=== PATIENT | male | born 1975 | race American Indian/Alaskan Native ===

== ENCOUNTER 2016-07-12 12:28 | Emergency (ER) | payer SELFPAY ==
[2016-07-12 13:16] VITALS: BP 134/83
[2016-07-12] MEDS ORDERED: BOOSTRIX IM ONE (13:55)
--- NOTE | 2016-07-12 14:36 | Emergency Department Report ---
Entered by CADEN FALL, acting as scribe for PRIYANKA OTTO PA. - General Chief Complaint: Wound/Laceration Stated Complaint: RT HAND POINTER FINGER/GLASS Time Seen by Provider: 07/12/16 13:43 Source: patient Mode of arrival: Ambulatory Limitations: No Limitations - History of Present Illness Initial Comments: 40 year old male with no significant PMHx presents to the ED c/o a laceration to the right lateral 2nd digit on hand that began this morning at 07:00. Patient states he cut his finger on shattered glass from a broken picture. Associated symptoms include pain around affected area, but he denies numbness, tingling, nausea, vomiting, fever, and loss of feeling. Rates associated pain a 5/10 in severity. Not UTD on tetanus shot. NKDA. -: This morning (07:00) Location: other (lateral 2nd digit on right hand) Extremity Location: Right: Hand (lateral 2nd digit) Place: home Patient Tetanus UTD: No Context: accidental (cut finger on shattered glass from a broken picture) Associated Symptoms: pain, suspect foreign body present. denies: loss of feeling/numbness, weakness followed by dizziness, nausea/vomiting, fever - Related Data Home Medications Medication Instructions Recorded Confirmed Last Taken No Known Home Medications [No 07/12/16 07/12/16 Unknown Reported Home Medications] Allergies Allergy/AdvReac Type Severity Reaction Status Date / Time No Known Allergies Allergy Unverified 07/12/16 13:15 ED Review of Systems Comment: All other systems reviewed and negative Constitutional: denies: chills, fever, weakness, other (tingling) Respiratory: denies: orthopnea, shortness of breath, SOB with exertion, SOB at rest, stridor Cardiovascular: denies: dyspnea on exertion, orthopnea Gastrointestinal: denies: nausea, vomiting Musculoskeletal: other (2nd digit on right hand pain) Skin: other (lacteration to lateral right 2nd digit on hand). denies: rash Neurological: denies: numbness ED Past Medical Hx - Past Medical History Previous Medical History?: No - Surgical History Past Surgical History?: No - Social History Smoking Status: Current Every Day Smoker Substance Use Type: Alcohol - Medications Home Medications: Home Medications Medication Instructions Recorded Confirmed Last Taken Type No Known Home Medications [No 07/12/16 07/12/16 Unknown History Reported Home Medications] ED Physical Exam - General Limitations: No Limitations General appearance: alert, in no apparent distress - Head Head exam: Present: atraumatic, normocephalic - Eye Eye exam: Present: normal appearance, EOMI Pupils: Present: normal accommodation - ENT ENT exam: Present: normal exam, mucous membranes moist - Neck Neck exam: Present: normal inspection, full ROM - Respiratory Respiratory exam: Present: normal lung sounds bilaterally. Absent: respiratory distress, wheezes, rales, rhonchi - Cardiovascular Cardiovascular Exam: Present: regular rate, normal rhythm. Absent: systolic murmur, diastolic murmur, rubs, gallop - GI/Abdominal GI/Abdominal exam: Present: soft. Absent: distended - Extremities Exam Extremities exam: Present: normal inspection, full ROM, tenderness (right lateral 2nd digit on hand ), normal capillary refill - Expanded Upper Extremity Exam Right General: Present: laceration (right lateral 2nd digit on hand). Absent: abrasion, foreign body, amputation, avulsion Shoulder Exam: Present: normal inspection, full ROM Upper Arm exam: Present: normal inspection, full ROM Elbow exam: Present: normal inspection, full ROM Forearm Wrist exam: Present: normal inspection, full ROM Hand Wrist exam: Present: normal inspection, full ROM, tenderness (2nd digit on right hand), laceration (lateral 2nd digit on right hand). Absent: swelling, abrasion, ecchymosis, deformity, dislocation, erythema, amputation Neuro motor exam: Present: wrist extension intact, thumb opposition intact, thumb IP flexion intact, thumb adduction intact, fingers 2-5 abduction intact Neurosensory exam: Present: radial nerve intact, ulnar nerve intact, median nerve intact Vascular: Present: normal capillary refill, radial pulse (2+), brachial pulse (2 +), ulnar pulse (2+). Absent: vascular compromise, pulse deficit radial art, pulse deficit ulnar art, pulse deficit brachial art - Back Exam Back exam: Present: normal inspection, full ROM - Neurological Exam Neurological exam: Present: alert, oriented X3 - Psychiatric Psychiatric exam: Present: normal affect, normal mood - Skin Skin exam: Present: warm, dry, intact. Absent: rash ED Course Vital Signs 07/12/16 13:13 Temperature 98.0 F Pulse Rate 83 Respiratory 19 Rate Blood Pressure 134/83 O2 Sat by Pulse 100 Oximetry - Laceration /Wound Repair Left Finger Wound Length (cm): 1 Wound's Depth, Shape: superficial, linear Wound Explored: no foreign body removed Irrigated w/ Saline (ccs): 45 Betadine Prep?: Yes Wound Debrided: minimal Wound Repaired With: Dermabond ED Medical Decision Making - Medical Decision Making Patient was evaluated in fast track area of ED by this provider. Patient presented with a laceration to lateral right 2nd digit on hand that began this morning at 07:00. In the ED, the patient's small laceration will be glued together. Patient is in no acute distress at this time. He is instructed to keep the affected area clean and dry. He is encouraged to return to the emergency room for any worsening symptoms. ED Disposition Clinical Impression: Cut of finger Disposition: DISCHARGED TO HOME OR SELFCARE Is pt being admited?: No Does the pt Need Aspirin: No Condition: Stable Instructions: Skin Adhesive Care (ED) Additional Instructions: Keep Wound clean and dry. You can apply a Band-Aid on it please change the bandage daily. Referrals: PRIMARY CARE,MD [Primary Care Provider] - 3-5 Days [facility] [Provider Group] - 3-5 Days [facility] [Provider Group] - 3-5 Days Forms: Work/School Release Form(ED) This documentation as recorded by the EUFEMIA bob JASMINE,accurately reflects the service I personally performed and the decisions made by me, PRIYANKA OTTO PA.
== END 2016-07-12 14:36 | disposition home or self-care (01) ==
LOC: ED 12:28
DX: S61.210A Laceration without foreign body of right index finger without damage to nail, initial encounter (principal); F17.200 Nicotine dependence, unspecified, uncomplicated; W25.XXXA Contact with sharp glass, initial encounter; Y93.9 Activity, unspecified; Y99.9 Unspecified external cause status; Y92.009 Unspecified place in unspecified non-institutional (private) residence as the place of occurrence of the external cause
CPT/HCPCS: 90471; 90715

== ENCOUNTER 2017-12-11 21:53 | Emergency (ER) | payer OTHER ==
[2017-12-11 22:42] VITALS: BP 121/92
[2017-12-11] MEDS ORDERED: MOTRIN PO ONE (23:03)
--- NOTE | 2017-12-11 23:07 | Emergency Department Report ---
HPI - General Chief Complaint: Dental/Oral Time Seen by Provider: 12/11/17 23:03 - HPI HPI: Room 37 The patient is a 42-year-old male presented with a chief complaint of toothache. The patient's A for 1 week he's had pain from his left upper molars. Patient denies any history of fever. Patient states the pain radiates to the left side of his neck and eyes. The patient gives his pain score of 8/ 10. The patient states he has not yet seen a dentist. Location: [See above] Duration: 7 days Quality: Pain Severity:8/10 Modifying factors: [see above] Context: [see above] Mode of transportation: The patient drove himself to the emergency department and there are no visitors present ED Past Medical Hx - Past Medical History Previous Medical History?: No - Surgical History Past Surgical History?: No - Family History Family history: no significant - Social History Smoking Status: Current Every Day Smoker (1/4 pack per day) Substance Use Type: None (denies illicit drug use), Alcohol (occasional) - Medications Home Medications: Home Medications Medication Instructions Recorded Confirmed Last Taken Type Amoxicillin [Trimox CAP] 500 mg PO BID #14 capsule 12/11/17 Unknown Rx HYDROcodone/APAP 5-325 [Pablo 1 - 2 each PO Q6HR PRN #10 tablet 12/11/17 Unknown Rx 5/325] Ibuprofen [Motrin 800 MG tab] 800 mg PO Q8HR PRN #20 tablet 12/11/17 Unknown Rx ED Review of Systems ROS: Stated complaint: TOOTH ACHE Other details as noted in HPI Constitutional: no symptoms reported Eyes: denies: eye pain ENT: dental pain Respiratory: no symptoms reported Cardiovascular: denies: chest pain Endocrine: no symptoms reported Gastrointestinal: denies: abdominal pain Genitourinary: denies: dysuria Musculoskeletal: denies: back pain Neurological: denies: headache Physical Exam - Physical Exam Vital Signs: Vital Signs 12/11/17 22:39 Temperature 98.7 F Pulse Rate 74 Respiratory 20 Rate Blood Pressure 121/92 [Left] O2 Sat by Pulse 99 Oximetry Physical Exam: GENERAL: The patient is well-developed well-nourished male sitting on stretcher not appearing to be in acute distress. [] HEENT: Normocephalic. Atraumatic. Extraocular motions are intact. Teeth #15 and 16 are tender to palpation. No evidence of gingival erythema or abscess. There is no evidence of dental caries NECK: Supple. Trachea midline CHEST/LUNGS: Clear to auscultation. There is no respiratory distress noted. HEART/CARDIOVASCULAR: Regular. There is no tachycardia. There is no gallop rub or murmur. ABDOMEN: Abdomen is soft, nontender. Patient has normal bowel sounds. There is no abdominal distention. SKIN: There is no rash. There is no edema. There is no diaphoresis. NEURO: The patient is awake, alert, and oriented. The patient is cooperative. The patient has normal speech MUSCULOSKELETAL: There is no evidence of acute injury. ED Course Vital Signs 12/11/17 22:39 Temperature 98.7 F Pulse Rate 74 Respiratory 20 Rate Blood Pressure 121/92 [Left] O2 Sat by Pulse 99 Oximetry ED Medical Decision Making - Differential Diagnosis dental pain Critical care attestation.: If time is entered above; I have spent that time in minutes in the direct care of this critically ill patient, excluding procedure time. ED Disposition Clinical Impression: Toothache Disposition: TO HOME OR SELFCARE Is pt being admited?: No Does the pt Need Aspirin: No Condition: Stable Instructions: Toothache (ED) Additional Instructions: Return to the emergency department immediately should you develop worsening symptoms, fever, inability to tolerate food or liquid or any other concerns. Prescriptions: Amoxicillin [Trimox CAP] 500 mg PO BID #14 capsule HYDROcodone/APAP 5-325 [Pablo 5/325] 1 - 2 each PO Q6HR PRN #10 tablet PRN Reason: Pain Ibuprofen [Motrin 800 MG tab] 800 mg PO Q8HR PRN #20 tablet PRN Reason: Pain, Moderate (4-6) Referrals: PRIMARY CARE, [Primary Care Provider] - 3-5 Days [facility] [Outside] - 3-5 Days Time of Disposition: 23:09
== END 2017-12-11 23:15 | disposition home or self-care (01) ==
LOC: ED 21:53
DX: K08.89 Other specified disorders of teeth and supporting structures (principal); F17.200 Nicotine dependence, unspecified, uncomplicated
CPT/HCPCS: 99282